=== PATIENT | male | born 1970 | race Caucasian/White ===

== ENCOUNTER 2017-12-06 20:02 | Inpatient (IN) | payer BC ==
[~2017-12-06] VITALS: Ht 175.3 cm; Wt 96.7 kg
[2017-12-06 21:34] LABS: HEMATOCRIT 40.8 % (38.0-50.0); HEMOGLOBIN 13.8 G/DL (12.5-16.6); MCH 30.3 PG (29.0-34.0); MCHC 33.8 G/DL (30.0-36.0); MCV 89.7 FL (86-99); PLATELET COUNT 216 K/uL (156-360); RBC DIS.WIDTH-CV 13.2 % (11.8-14.6); RBC DIS.WIDTH-SD 43.4 % (39-53); RED BLOOD COUNT 4.55 M/uL (4.00-5.50); WHITE BLOOD COUNT 13.1 K/uL (4.1-10.2)
[2017-12-06 21:44] LABS: ALBUMIN 4.4 g/dL (3.2-4.8)
[2017-12-06 21:45] LABS: CHLORIDE 102 mEq/L (99-109); POTASSIUM 3.7 mEq/L (3.7-5.4); SODIUM 136 mEq/L (136-147)
[2017-12-06 21:47] LABS: GLUCOSE 129 mg/dL (70-99); TOTAL PROTEIN 7.6 g/dL (6.4-8.3)
[2017-12-06 21:48] LABS: APPEARANCE CLEAR ((CLEAR)); BILIRUBIN NEGATIVE; BLOOD SMALL; COLOR YELLOW ((YELLOW)); GLUCOSE (STRIP) NEGATIVE; KETONES NEGATIVE; LEUKOCYTES NEGATIVE; NITRITE NEGATIVE; PROTEIN (STRIP) 30; SPECIFIC GRAVITY 1.021 (1.000-1.030); UROBILINOGEN 0.2 MG/DL (0.2-1.0)
[2017-12-06 21:49] LABS: TOTAL BILIRUBIN 0.3 mg/dL (0.0-1.0)
[2017-12-06 21:50] LABS: ALKALINE PHOSPHATASE 105 IU/L (3-129)
[2017-12-06 21:51] LABS: CREATININE 3.4 mg/dL (0.6-1.3); GFR ESTIMATE (CALCULATED) 21 mL/min/ (58.99-99999)
[2017-12-06 21:52] LABS: AST (GOT) 26 IU/L (2-34); UREA NITROGEN (BUN) 48 mg/dL (9-23)
[2017-12-06 21:54] LABS: ALT (GPT) 33 IU/L (3-49)
[2017-12-06 22:05] LABS: BACTERIA RARE /HPF; EPITHELIAL CELLS RARE /HPF; HYALINE CASTS 30-40 /LPF; MUCUS 1+ /LPF; RED BLOOD CELLS 0-5 /HPF (0-5); UCUL ADDED? NO; WHITE BLOOD CELLS 0-5 /HPF (0-5)
[2017-12-06] MEDS ORDERED: TYLENOL EXTRA500 MG PO (22:28)
[2017-12-06] MEDS ORDERED: LISINOPRIL40 MG PO (22:28)
[2017-12-06 23:03] LABS: CREATINE KINASE 285 IU/L (1-294)
[2017-12-07 01:00] VITALS: BP 127/81
[2017-12-07 04:11] VITALS: BP 126/79
[2017-12-07 06:38] LABS: HEMATOCRIT 38.2 % (38.0-50.0); HEMOGLOBIN 12.7 G/DL (12.5-16.6); MCH 31.1 PG (29.0-34.0); MCHC 33.2 G/DL (30.0-36.0); MCV 93.4 FL (86-99); PLATELET COUNT 176 K/uL (156-360); RBC DIS.WIDTH-CV 13.2 % (11.8-14.6); RBC DIS.WIDTH-SD 45.1 % (39-53); RED BLOOD COUNT 4.09 M/uL (4.00-5.50); WHITE BLOOD COUNT 10.6 K/uL (4.1-10.2)
[2017-12-07 07:01] LABS: GLUCOSE 102 mg/dL (70-99); SODIUM 139 MEQ/L (136-147); UREA NITROGEN (BUN) 36 mg/dL (9-23)
[2017-12-07 07:09] LABS: CHLORIDE 109 MEQ/L (99-109); CREATININE 2.1 MG/DL (0.6-1.3); GFR ESTIMATE (CALCULATED) 36 mL/min/ (58.99-99999); POTASSIUM 4.5 MEQ/L (3.7-5.4)
[2017-12-07 08:13] VITALS: BP 118/76
[2017-12-07 11:09] VITALS: BP 142/88
[2017-12-07 15:20] VITALS: BP 135/72
[2017-12-07 15:37] LABS: CHLORIDE 111 MEQ/L (99-109); GFR ESTIMATE (CALCULATED) > 59 mL/min/ (58.99-99999); GLUCOSE 109 mg/dL (70-99); SODIUM 140 MEQ/L (136-147); UREA NITROGEN (BUN) 25 mg/dL (9-23)
[2017-12-07 15:46] LABS: CREATININE 1.3 MG/DL (0.6-1.3)
[2017-12-07] MEDS ORDERED: AMLODIPINE BESYL5 MG PO (16:54)
== END 2017-12-07 17:18 | disposition home or self-care (01) | DRG 684 ==
LOC: EME 20:02 → 3EAST 23:26 → EDOF 23:26 → ENRESERV 23:28 → 3EAST 12-07 00:50
PROVIDERS: Emergency Medicine; Internal Medicine; Physician Assistant
DX: N17.9 Acute kidney failure, unspecified (principal); E86.0 Dehydration; I95.9 Hypotension, unspecified; D72.829 Elevated white blood cell count, unspecified; I10 Essential (primary) hypertension; N28.1 Cyst of kidney, acquired; F17.210 Nicotine dependence, cigarettes, uncomplicated
CPT/HCPCS: 36415; 71046; 76770; 80048; 80048 91; 80053; 81003; 82550; 83605; 83735; 84100; 84443; 85025; 85027; 99281; 99285; J1644; J7030